=== PATIENT | female | born 1965 | race Caucasian/White ===

== ENCOUNTER 2016-12-15 11:54 | Emergency (ER) | payer MEDICARE, MEDICAID ==
--- NOTE | 2016-12-15 13:08 | ER Document Report ---
ED Psych Disorder / Suicide - General Mode of Arrival: Medic Information source: Patient, Emergency Med Personnel TRAVEL OUTSIDE OF THE [place] IN LAST 30 DAYS: No - HPI Patient complains to provider of: Suicidal attempt Onset: Just prior to arrival Suicide Risk Factors: Depressed, Organized plan Overdose of: Other - Oxycodone Associated symptoms: Other - see above <RACHID BLOUNT - Last Filed: 12/15/16 13:13> <SYLVESTER RIOS - Last Filed: 12/15/16 15:04> <RAYMUNDO RICO - Last Filed: 12/16/16 10:48> - General Chief Complaint: Overdose Stated Complaint: POSSIBLE OVERDOSE Notes: 51 year old female with history of COPD, diabetes, hypertension, hyperlipidemia , and depression presents to the ED via EMS after taking five 10mg tablets of oxycodone in a suicide attempt just prior to arrival. Patient states that she was feeling "bad" today. Patient has peripheral vascular disease and had a left AKA performed. Patient has a history of 6 strokes, with 1 of them being "major" . Patient is currently taking Coumadin. (RACHID BLOUNT) - Related Data Allergies/Adverse Reactions: morphine [Morphine] Allergy (Verified 09/13/14 14:34) Home Medications: Current Home Medications Aspirin/Acetaminophen/Caffeine [Excedrin Migraine Caplet] 1 each PO DAILY [History] Atorvastatin Calcium 40 mg PO DAILY 12/15/16 [History] Cyclobenzaprine HCl 10 mg PO BID 12/15/16 [History] Estradiol 1 each TD Q7D 12/15/16 [History] Fluticasone/Salmeterol [Advair 250-50 Diskus 28 dose] 1 puff IN BID 12/15/16 [ History] Fluticasone/Vilanterol [Breo Ellipta 100-25 Mcg INH] 1 each IH DAILY 12/15/16 [ History] Gabapentin 300 mg PO TID 12/15/16 [History] Ibuprofen 800 mg PO BID PRN 12/15/16 [History] Linagliptin [Tradjenta] 5 mg PO DAILY 12/15/16 [History] Lorazepam 1 mg PO BID 12/15/16 [History] Metoprolol Succinate 50 mg PO BID 12/15/16 [History] Nifedipine [Nifedipine ER] 60 mg PO DAILY 12/15/16 [History] Omeprazole 20 mg PO BID 12/15/16 [History] Oxycodone HCl [Oxycodone HCl 10 MG Tablet] 10 mg PO BID 12/15/16 [History] Pramipexole Di-HCl [Pramipexole Dihydrochloride] 0.5 mg PO QHS 12/15/16 [History ] Progesterone,Micronized [Progesterone] 100 mg PO QHS 12/15/16 [History] Warfarin Sodium 3 mg PO DAILY 12/15/16 [History] Past Medical History - General Information source: Patient, Emergency Med Personnel - Social History Smoking Status: Current Every Day Smoker Cigarette use (# per day): Yes - 2 packs per day Family History: Reviewed & Not Pertinent - Past Medical History Cardiac Medical History: Reports: Hx Hypercholesterolemia, Hx Hypertension Pulmonary Medical History: Reports: Hx COPD Neurological Medical History: Reports: Hx Cerebrovascular Accident - x6, with 1 being "major", Hx Migraine Endocrine Medical History: Reports: Hx Diabetes Mellitus Type 2 Musculoskeltal Medical History: Reports Hx Arthritis Past Surgical History: Reports: Hx Cholecystectomy, Hx Orthopedic Surgery - Bilat knees and ankles; bone spurs; carpal tunnel. Left AKA. - Immunizations Hx Diphtheria, Pertussis, Tetanus Vaccination: Yes <RACHID BLOUNT - Last Filed: 12/15/16 13:13> Review of Systems - Review of Systems Constitutional: No symptoms reported EENT: No symptoms reported Cardiovascular: No symptoms reported Respiratory: No symptoms reported Gastrointestinal: No symptoms reported Genitourinary: No symptoms reported Female Genitourinary: No symptoms reported Musculoskeletal: No symptoms reported Skin: No symptoms reported Hematologic/Lymphatic: No symptoms reported Neurological/Psychological: See HPI, Depression -: Yes All other systems reviewed and negative <RACHID BLOUNT - Last Filed: 12/15/16 13:13> Physical Exam - Vital signs Interpretation: Normal - General General appearance: Alert, Other - Easily arousable In distress: None - HEENT Head: Normocephalic, Atraumatic Eyes: Normal Extraocular movements intact: Yes Pupils: PERRL - not constricted - Respiratory Respiratory status: No respiratory distress Breath sounds: Normal - Cardiovascular Rhythm: Regular Heart sounds: Normal auscultation - Abdominal Inspection: Obese. No: Normal - Back Back: Normal - Extremities General upper extremity: Normal ROM. No: Normal inspection - see forearm exam below General lower extremity: Normal ROM. No: Normal inspection - left AKA Forearm: Other - Left forearm transverse superficial self-inflicted laceration - Neurological Neuro grossly intact: Yes - Psychological Associated symptoms: Normal affect, Normal mood - Skin Skin Temperature: Warm Skin Moisture: Dry Skin Color: Normal <RACHID BLOUNT - Last Filed: 12/15/16 13:13> <SYLVESTER RIOS - Last Filed: 12/15/16 15:04> <RAYMUNDO RICO - Last Filed: 12/16/16 10:48> - Vital signs Vitals: Temp Pulse Resp BP Pulse Ox 97.2 F 84 18 129/80 H 98 12/15/16 12:02 12/15/16 12:02 12/15/16 12:02 12/15/16 12:02 12/15/16 12:02 (RACHID BLOUNT) (SYLVESTER RIOS) (RAYMUNDO RICO) Course - Laboratory Result Diagrams: 12/15/16 12:35 12/15/16 12:35 <RACHID BLOUNT - Last Filed: 12/15/16 13:13> - Laboratory Result Diagrams: 12/15/16 12:35 12/15/16 12:35 <SYLVESTER RIOS - Last Filed: 12/15/16 15:04> - Laboratory Result Diagrams: 12/15/16 12:35 12/15/16 12:35 <RAYMUNDO RICO - Last Filed: 12/16/16 10:48> - Re-evaluation Re-evalutation: 12/16/16 10:46 Agent seen and evaluated early this morning. Patient at this time does not endorse any attempt of suicide by overdose patient has been cleared by psych to follow-up as outpatient. Patient will be discharged home antibiotics for urinary tract infection told to follow-up with her primary care physician. 12/16/16 10:48 Patient has no complaints today. (RAYMUNDO RICO) - Vital Signs Vital signs: Temp Pulse Resp BP Pulse Ox 98.6 F 84 16 115/74 97 12/16/16 05:41 12/16/16 05:41 12/16/16 05:41 12/16/16 05:41 12/16/16 05:41 (RACHID BLOUNT) (SYLVESTER RIOS) (RAYMUNDO RICO) - Laboratory Laboratory results interpreted by me: 12/15/16 12/15/16 12/15/16 12:20 12:35 12:35 WBC 13.1 H RBC 5.94 H MCV 79 L MCH 25.3 L MCHC 31.9 L RDW 18.0 H Absolute Neutrophils 9.3 H PT Glucose 125 H POC Glucose Urine Nitrite POSITIVE H Ur Leukocyte Esterase SMALL H Salicylates < 1.0 L Acetaminophen < 10 L 12/15/16 12/16/16 12:35 09:02 WBC RBC MCV MCH MCHC RDW Absolute Neutrophils PT 18.0 H Glucose POC Glucose 180 H Urine Nitrite Ur Leukocyte Esterase Salicylates Acetaminophen (SYLVESTER RIOS) (RAYMUNDO RICO) Discharge <RACHID BLOUNT - Last Filed: 12/15/16 13:13> <SYLVESTER RIOS - Last Filed: 12/15/16 15:04> <RAYMUNDO RICO - Last Filed: 12/16/16 10:48> - Discharge Clinical Impression: Peripheral vascular disease, Tobacco abuse Depression Qualifiers: Depression Type: unspecified Qualified Code(s): F32.9 - Major depressive disorder, single episode, unspecified Overdose Qualifiers: Encounter type: initial encounter Injury intent: intentional self-harm Qualified Code(s): T50.902A - Poisoning by unspecified drugs, medicaments and biological substances, intentional self-harm, initial encounter COPD (chronic obstructive pulmonary disease) Qualifiers: COPD type: unspecified COPD Qualified Code(s): J44.9 - Chronic obstructive pulmonary disease, unspecified Urinary tract infection Qualifiers: Urinary tract infection type: site unspecified Hematuria presence: with hematuria Qualified Code(s): N39.0 - Urinary tract infection, site not specified Condition: Stable Disposition: PSYCH HOSP/UNIT Instructions: Urinary Tract Infection ([facility]), Trimethoprim-Sulfa ([facility]), Overdose ([facility]), Instructions for Home Care Following a Drug Overdose ([facility]), Depression ([facility]) Additional Instructions: Please follow-up with your primary care provider. Prescriptions: Sulfamethoxazole/Trimethoprim [Bactrim 400-80 mg Tablet] 1 each PO BID #20 tablet Forms: Smoking Cessation Education Referrals: MILEY STODDARD MD [Primary Care Provider] - Follow up as needed Scribe Documentation - Scribe Written by Scribe:: Jovi Multani, 12/15/2016 1313 acting as scribe for :: Lisette <RACHID BLOUNT - Last Filed: 12/15/16 13:13>
[2016-12-15 13:12] LABS: ABSOLUTE BASOPHILS # (AUTO) 0.1 10^3/uL (0.0-0.2); ABSOLUTE EOSINOPHILS # (AUTO) 0.1 10^3/uL (0.0-0.6); ABSOLUTE LYMPHOCYTES (AUTO) 3.1 10^3/uL (0.5-4.7); ABSOLUTE MONOCYTES (AUTO) 0.5 10^3/uL (0.1-1.4); ABSOLUTE NEUT (AUTO) 9.3 10^3/uL (1.7-8.2); BASOPHILS % (AUTO) 0.7 % (0-2); EOSINOPHILS % (AUTO) 0.7 % (0-6); LYMPHOCYTES % (AUTO) 23.5 % (13-45); MEAN CORPUSCULAR HEMOGLOBIN 25.3 pg (27.0-33.4); MEAN CORPUSCULAR HGB CONC 31.9 g/dL (32.0-36.0); MEAN CORPUSCULAR VOLUME 79 fl (80-97); MONOCYTES % (AUTO) 3.9 % (3-13); RED BLOOD COUNT 5.94 10^6/uL (3.72-5.28); SEGMENTED NEUTROPHILS % (AUTO) 71.2 % (42-78); WHITE BLOOD COUNT 13.1 10^3/uL (4.0-10.5)
[2016-12-15 13:25] LABS: URINE BARBITURATES SCREEN NEGATIVE; URINE METHADONE SCREEN NEGATIVE; URINE OPIATES LOW NEGATIVE; URINE PHENCYCLIDINE SCREEN NEGATIVE
[2016-12-15 13:31] LABS: ADD ON TESTING BLD IN LAB ACKNOWLEDGE
[2016-12-15 13:35] LABS: ALANINE AMINOTRANSFERASE 28 U/L (9-52); ALBUMIN 3.9 g/dL (3.5-5.0); ALKALINE PHOSPHATASE 122 U/L (38-126); ANION GAP 14 (5-19); ASPARTATE AMINO TRANSFERASE 15 U/L (14-36); BILIRUBIN,TOTAL 0.4 mg/dL (0.2-1.3); BLOOD UREA NITROGEN 7 mg/dL (7-20); CALCIUM 10.1 mg/dL (8.4-10.2); CARBON DIOXIDE 26 mmol/L (22-30); CHLORIDE 104 mmol/L (98-107); CREATININE RESULT 0.72 mg/dL (0.52-1.25); GLUCOSE 125 mg/dL (75-110); POTASSIUM 4.5 mmol/L (3.6-5.0); SODIUM 144.4 mmol/L (137-145); TOTAL PROTEIN 7.6 g/dL (6.3-8.2)
[2016-12-15 13:41] LABS: ALCOHOL < 10 mg/dL (NONE DETECTED)
[2016-12-15 13:46] LABS: AMORPHOUS SEDIMENT,URINE TRACE /HPF; APPEARANCE,URINE SLIGHTLY-CLOUDY; BILIRUBIN,URINE NEGATIVE (NEGATIVE); GLUCOSE, URINE NEGATIVE (NEGATIVE); KETONES,URINE NEGATIVE (NEGATIVE); LEUKOCYTE ESTERASE,URINE SMALL (NEGATIVE); NITRITE,URINE POSITIVE (NEGATIVE); PROTEIN,URINE NEGATIVE (NEGATIVE); URINE SPECIFIC GRAVITY 1.008; UROBILINOGEN,URINE NEGATIVE mg/dL (<2.0)
[2016-12-15 13:48] LABS: MAGNESIUM 1.9 mg/dL (1.6-2.3)
[2016-12-15] MEDS ORDERED: NICOTINE 21 MG/24 HR PATCH.TD24 TD ONE (15:03)
[2016-12-15] MEDS ORDERED: SULFAMETHOXAZOLE/TRIMETHOPRIM 800-160 MG TABLET PO ONE (15:06)
[2016-12-15] MEDS ORDERED: IBUPROFEN 800 MG TABLET PO PRN (15:56)
[2016-12-15] MEDS ORDERED: TRAMADOL HCL 50 MG TABLET PO SCH (16:00)
[2016-12-15] MEDS ORDERED: ESTRADIOL TD SCH (16:00)
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
[2016-12-15] MEDS ORDERED: LORAZEPAM 1 MG TABLET PO SCH (18:00)
[2016-12-15] MEDS ORDERED: GABAPENTIN 300 MG CAPSULE PO SCH (18:00)
--- NOTE | 2016-12-15 18:06 | EKG REPORT ---
SEVERITY:- BORDERLINE ECG - SINUS RHYTHM LEFT AXIS DEVIATION CONSIDER ANTERIOR INFARCT LATERAL NONSPECIFIC ST-T CHANGES : Confirmed by: Sree Ornelas MD 15-Dec-2016 18:05:36
[2016-12-15] MEDS: CYCLOBENZAPRINE HCL 10 MG TABLET PO SCH (19:19)
[2016-12-15] MEDS: LANSOPRAZOLE 15 MG TAB.RAP.DR PO SCH (19:19)
[2016-12-15] MEDS: METFORMIN HCL 500 MG TABLET PO SCH (19:20)
[2016-12-15] MEDS: SULFAMETHOXAZOLE/TRIMETHOPRIM 800-160 MG TABLET PO SCH (19:36)
[2016-12-15] MEDS ORDERED: GABAPENTIN 300 MG CAPSULE PO ONE (19:55)
[2016-12-15] MEDS ORDERED: LORAZEPAM 0.5 MG TABLET PO SCH (20:00)
[2016-12-15] MEDS ORDERED: PRAMIPEXOLE DI-HCL 0.5 MG TABLET PO SCH (22:00)
[2016-12-15] MEDS ORDERED: PROGESTERONE MICRONIZED 100 MG PO SCH (22:00)
[2016-12-15] MEDS: METOPROLOL SUCCINATE 50 MG TAB.SR.24H PO SCH (22:35)
[2016-12-15] MEDS: FLUTICASONE/SALMETEROL DISKUS 250-50 MCG/DOSE IH SCH (22:35)
[2016-12-16] MEDS ORDERED: (PENDING PHARMACY ID) (Nifedipine [Nifedipine Er] 60 MG) PO SCH (10:00)
[2016-12-16] MEDS ORDERED: ATORVASTATIN CALCIUM 40 MG TABLET PO SCH (10:00)
[2016-12-16] MEDS ORDERED: NIFEDIPINE 30 MG TAB.ER.24 PO SCH (10:00)
[2016-12-16] MEDS ORDERED: WARFARIN SODIUM 3 MG TABLET PO SCH (10:00)
[2016-12-16] MEDS ORDERED: (PENDING PHARMACY ID) (Linagliptin [Tradjenta] 5 MG) PO SCH (10:00)
[2016-12-16] MEDS ORDERED: (PENDING PHARMACY ID) (Warfarin Sodium 3 MG) PO SCH (10:00)
[2016-12-16] MEDS: METFORMIN HCL 500 MG TABLET PO SCH (10:21)
[2016-12-16] MEDS: METOPROLOL SUCCINATE 50 MG TAB.SR.24H PO SCH (10:22)
[2016-12-16] MEDS: SULFAMETHOXAZOLE/TRIMETHOPRIM 800-160 MG TABLET PO SCH (10:23)
[2016-12-16] MEDS: CYCLOBENZAPRINE HCL 10 MG TABLET PO SCH (10:23)
[2016-12-16] MEDS: FLUTICASONE/SALMETEROL DISKUS 250-50 MCG/DOSE IH SCH (10:24)
[2016-12-16] MEDS: LANSOPRAZOLE 15 MG TAB.RAP.DR PO SCH (10:24)
--- NOTE | 2016-12-16 10:43 | PSYCHOLOGICAL NOTE ---
Psych Note - Psych Note Psych Note: Conducted check in with patient who is a 51 year old female under IVC at [facility]. Patient initially presented yesterday due to OD with unknown intent. Patient 's son did state he found the missing pills upon returning home; however, due to patient's overall presentation, concerns over patient's safety were discussed and patient was placed under IVC for additional evaluation and observation. Patient today presents A&O. Patient is much more engaging in conversation. Patient's affect is brighter. Patient has engaged in self care. Patient's thought processes is organized. Her speech today is WNL for rate, tone , and prosody. She denies suicidal/homicidal ideations, intent, plan, or means. Patient denies A/V H; delusions not noted. Attention and focus today were good. Insight was poor, judgment and impulse control were fair. 311 (F32.9)Unspecified Depressive Disorder, per history R/O Polysubstance Abuse Patient is psychiatrically cleared for discharge and recommended for rescind IVC. Patient is encouraged to follow up with her PCP to review her medications and possible side effects when overusing as she stated she did yesterday. Patient denies suicidal ideations. I consulted with Dr. Padilla in regards to the care and management of this patient. ED MD is in agreement with disposition and recommendations.
[2016-12-16 10:52] VITALS: BP 133/90
== END 2016-12-16 11:00 ==
LOC: ER 11:54
DX: T40.2X2A Poisoning by other opioids, intentional self-harm, initial encounter (principal); Y92.009 Unspecified place in unspecified non-institutional (private) residence as the place of occurrence of the external cause; S51.812A Laceration without foreign body of left forearm, initial encounter; X78.9XXA Intentional self-harm by unspecified sharp object, initial encounter; F32.9 Major depressive disorder, single episode, unspecified; N39.0 Urinary tract infection, site not specified; J44.9 Chronic obstructive pulmonary disease, unspecified; I10 Essential (primary) hypertension; E11.51 Type 2 diabetes mellitus with diabetic peripheral angiopathy without gangrene; F17.210 Nicotine dependence, cigarettes, uncomplicated; Z89.612 Acquired absence of left leg above knee; Z86.73 Personal history of transient ischemic attack (TIA), and cerebral infarction without residual deficits; Z79.01 Long term (current) use of anticoagulants; Z88.5 Allergy status to narcotic agent
CPT/HCPCS: 93005; 99285; 36415; 87086; 82962; 80307 ×4; 83735; 85025; 85610; 80053; 81001; 93010; A9270 ×15; J3490

== ENCOUNTER 2017-05-14 22:50 | Emergency (ER) | payer MEDICARE, MEDICAID ==
[2017-05-14 23:04] VITALS: BP 134/74
[2017-05-14] MEDS ORDERED: ACETAMINOPHEN 325 MG TABLET PO ONE (23:04)
== END 2017-05-15 03:29 | disposition left against medical advice (07) ==
LOC: ER 22:50
DX: Z53.9 Procedure and treatment not carried out, unspecified reason (principal); M79.673 Pain in unspecified foot